=== PATIENT | male | born 1985 | race African-American/Black ===

== ENCOUNTER 2022-02-10 13:58 | Emergency (ER) | payer SELFPAY ==
[~2022-02-10] VITALS: Ht 170.2 cm; Wt 59.1 kg
[2022-02-10 14:09] VITALS: TEMP 98.5
[2022-02-10] MEDS ORDERED: ZOFRAN ODT4 MG PO (15:40)
[2022-02-10 17:26] VITALS: BP 114/79; PULSE 98
== END 2022-02-10 15:44 | disposition home or self-care (01) ==
LOC: COL.ER 13:58
DX: S06.0X0A Concussion without loss of consciousness, initial encounter (principal); S20.211A Contusion of right front wall of thorax, initial encounter; S01.01XA Laceration without foreign body of scalp, initial encounter; F17.200 Nicotine dependence, unspecified, uncomplicated; Z28.310 Unvaccinated for COVID-19; Y04.2XXA Assault by strike against or bumped into by another person, initial encounter